=== PATIENT | female | born 1985 | race Caucasian/White ===

== ENCOUNTER 2021-08-24 00:56 | Day surgery (SDC) | payer BC, SELFPAY ==
[2021-08-13 13:52] VITALS: BMI 23.0
[2021-08-24 12:32] VITALS: BP 151/76; PULSE 99; RESP 16; TEMP 36.6; O2SAT 100; BMI 23.1
[2021-08-24] MEDS: LACTATED RINGERS 1,000 ML 150 ML IV CONT (12:54)
--- NOTE | 2021-08-24 12:59 | WPDHPUPDATE1 ---
History and Physical Update Update Date/Time: 08/24/21 12:59 History and Physical has been reviewed, including an updated exam of the patient. There are NO changes in the patient's condition. Risks, benefits, and alternatives have been discussed and questions answered. Patient agrees to proceed with procedure.
--- NOTE | 2021-08-24 13:02 | P.PNAN_ITS ---
Anes - Initial Pre Proc Eval Procedure: Operation Date: 08/24/21 13:30 Proposed Procedures p Esophagogastroduodenoscopy - Fercho Oscar MD Date/Time: 08/24/21 13:02 Surgeon: Fercho Oscar MD Pre Op Diagnosis: dysphagia Patient Data Age: 35 Gender: F Height: 1.6 m Weight: 59.1 kg Last Vital Signs Temp 97.8 F 08/24/21 12:32 Pulse 99 08/24/21 12:32 Resp 16 08/24/21 12:32 BP 151/76 H 08/24/21 12:32 Pulse Ox 100 08/24/21 12:32 O2 Del Method Room Air 08/24/21 12:32 Allergies Allergy/AdvReac Type Severity Reaction Status Date / Time minocycline Allergy Unknown Dizziness, Verified 08/24/21 12:40 KRUEGER, nausea Home Medications Medication Instructions Recorded Confirmed Type fexofenadine 180 mg tablet 180 mg PO DAILY 11/15/19 08/24/21 History (Gianna Allergy) fluticasone propionate 50 2 spray intranasal DAILY 11/15/19 08/24/21 History mcg/actuation nasal spray,suspension docosahexaenoic acid 200 mg 200 mg PO DAILY 12/05/20 08/24/21 History capsule ( DHA) Patient hx anesthesia problems: none Family hx anesthesia problems: none Results Review: All pre-operative results and documents have been reviewed as part of the pre- operative evaluation. COUNT INCLUDES THE [facility] Past Medical History Medical History (Updated 07/26/21 @ 11:23 by Fercho Oscar MD) Bloating Dysphagia Epigastric pain Family history of Crohn's disease Family history of Sjogren's disease IBS (irritable bowel syndrome) Family History Family History Mother Family history of cardiovascular disease Family history of gastrointestinal disorder Family history of elevated blood lipids Father Patient's father is in good health Social History Social History (Updated 07/26/21 @ 10:56 by Cherelle Hilliard CMA) Smoking status: Never smoker Alcohol intake: current Alcohol use details: social Substance use: current Substance use type: does not use Living arrangements: other Additional living arrangements comments: With sp Spiritual care concerns: No Anes - Eval Final PreProcedure Day of Procedure 08/24/21 13:02 Patient weight: normal Heart: regular rate and rhythm Lungs: clear to auscultation Airway: Mallampati scale class II Neurological: alert and oriented Last oral intake: >/= 8 hours ASA classification: II Emergent: no Anesthetic plan: proceed Anesthesia type and monitoring: general GIVS and standard monitoring Results Review: All pre-operative results and documents have been reviewed as part of the pre- operative evaluation. Informed Consent: The patient's anesthetic plan and its attendant risks and benefits were discussed with the patient/family/POA. Questions were solicited and answers provided to the satisfaction of the patient/family/POA.
[2021-08-24 13:21] VITALS: BP 100/58; PULSE 78; RESP 19; O2SAT 100
[2021-08-24 13:31] VITALS: BP 104/67; PULSE 70; RESP 18; O2SAT 100
[2021-08-24 13:41] VITALS: BP 124/79; PULSE 66; RESP 15; O2SAT 100
== END 2021-08-24 13:49 | disposition home or self-care (01) ==
PROVIDERS: PCP Internal Medicine; Visit Provider Internal Medicine Gastroenterology
PROC: 0DJ08ZZ Inspection of Upper Intestinal Tract, Via Natural or Artificial Opening Endoscopic (ICD-10-PCS; CPT 43235; principal; 2021-08-24 13:30)
DX: R13.10 Dysphagia, unspecified (principal); K22.2 Esophageal obstruction; K21.00 Gastro-esophageal reflux disease with esophagitis, without bleeding; K58.9 Irritable bowel syndrome, unspecified; Z83.79 Family history of other diseases of the digestive system
CPT/HCPCS: 43249; 43239; 88305; C1726; J2704; J7120

== ENCOUNTER 2023-02-18 12:29 | Outpatient (RCR) | payer BC, SELFPAY ==
[2022-12-19 09:52] VITALS: BP 114/71; PULSE 86
[2022-12-25 14:40] VITALS: BP 109/78; PULSE 85
[2023-01-02 10:11] VITALS: BP 124/75; PULSE 92
[2023-01-09 09:59] VITALS: BP 108/68; PULSE 81
[2023-01-16 14:41] VITALS: BP 116/70; PULSE 80
[2023-01-22 09:50] VITALS: BP 110/69; PULSE 81
[2023-01-29 10:02] VITALS: BP 113/71; PULSE 81
[2023-02-05 09:32] VITALS: BP 115/73; PULSE 87
[2023-02-11 09:38] VITALS: BP 102/68; PULSE 73
[2023-02-17 11:10] VITALS: BP 109/73; PULSE 81
--- NOTE | ~2023-02-18 | US_ITS ---
EXAMINATION: US OB limited w BPP DATE: 02/18/2023 15:11 WRITING TUTOR INDICATION: Post due dates TECHNIQUE: Real-time transabdominal obstetric ultrasound. FINDINGS: No prior studies for comparison. There is a single living fetus in vertex presentation. The placenta is posterior without placenta pr evia. cardiac activity and movement is noted with a heart rate of 134 beats per minute. Biophysical profile: breathin of 2 movement: 2 of 2 tone: 2 of 2 Amniotic flud pocket: 2 of 2 Total score: 8 of 8 IMPRESSION: 1. Single living intrauterine in vertex presentation. 2: Total biophysical profile score of 8/8. Reviewed, dictated and finalized at location L. ING TUTOR
[2023-02-18 14:45] VITALS: BP 108/72; PULSE 74
== END 2023-03-19 23:59 | disposition home or self-care (01) ==
LOC: ANHOBOP 12:29
PROVIDERS: PCP Internal Medicine; Visit Provider Obstetrics & Gynecology
DX: O35.8XX0 Maternal care for other (suspected) fetal abnormality and damage, not applicable or unspecified (principal); O99.891 Other specified diseases and conditions complicating pregnancy; Q62.0 Congenital hydronephrosis; Z3A.32 32 weeks gestation of pregnancy; O36.8130 Decreased fetal movements, third trimester, not applicable or unspecified; Z3A.33 33 weeks gestation of pregnancy; Z3A.34 34 weeks gestation of pregnancy; Z3A.35 35 weeks gestation of pregnancy; Z3A.36 36 weeks gestation of pregnancy; Z3A.37 37 weeks gestation of pregnancy; Z3A.38 38 weeks gestation of pregnancy; Z3A.39 39 weeks gestation of pregnancy; Z3A.40 40 weeks gestation of pregnancy
CPT/HCPCS: 59025; 76815; 76819

== ENCOUNTER 2023-02-19 05:11 | Inpatient (IN) | payer BC, SELFPAY ==
[2023-02-19] VITALS (232 sets, daily range): BP systolic 70–131; BP diastolic 34–106; PULSE 60–149; RESP 16; TEMP 36.3–37.2; O2SAT 92–100; BMI 28.8
[2023-02-19 05:53] LABS: Basophils Percent Auto 0.3 % (0.2-1.2); Eosinophils Absolute Auto 0.2 K/mm3 (0-0.3); Eosinophils Percent Auto 2.1 % (0-4.4); Hemoglobin 10.9 g/dL (12.0-15.0); Immature Granulocyte Absolute 0.02 K/mm3 (0.00-0.031); Immature Granulocyte Percent A 0.3 % (0-0.5); Lymphocytes Absolute Auto 1.33 K/mm3 (0.9-3.2); Lymphocytes Percent Auto 18.3 % (18.3-44.2); Mean Corpuscular Hemoglobin 31.9 pg (26-34); Mean Corpuscular Volume 96.5 fl (80-100); Mean Platelet Volume 10.8 fl (7.4-10.4); Monocytes Absolute Auto 0.3 K/mm3 (0.1-0.6); Neutrophils Absolute Auto 5.4 K/mm3 (1.3-6.7); Platelet Count Result 172 k/mm3 (150-375); Red Blood Count 3.42 M/mm3 (4.2-5.4); Red Cell Distribution Width 14.4 % (11.5-14.5); White Blood Count 7.3 K/mm3 (4.5-10.0)
--- NOTE | 2023-02-19 05:53 | LDADM ---
This patient, Franchesca Arrington, was admitted to Labor/Delivery/Recovery 104 on 02/19/23 at 05:11. Plans for labor, pain management and were discussed with patient. Patient/family oriented to hospital policies and general routines including ID bracelet, bed and alarms, visiting hours, pain management, procedures, bathroom and other care routines, personal items, smoking policy, room service/diet and guest tray routines, infant security routines, and visiting hours. Patient/Family are encouraged to report perceived risks to care and to ask questions if they do not understand what they are told or what they should do. See OBIX for further documentation.
--- NOTE | 2023-02-19 06:34 | PM.IMHP ---
H&P: HPI History of Present Illness Date/Time: 02/19/23 06:34 Chief Complaint: Postdate Narrative: this is a 37-year-old 4 para 2 at 41 weeks gestation for induction of labor she has early ultrasound confirming dates. Risks and benefits were reviewed of induction [facility] Past Medical History Medical History Bloating Dysphagia Epigastric pain Family history of Crohn's disease Family history of Sjogren's disease IBS (irritable bowel syndrome) Non-cardiac chest pain Family History Family History Mother Family history of cardiovascular disease Family history of gastrointestinal disorder Family history of elevated blood lipids Father Patient's father is in good health Social History Social History Smoking status: Never smoker Second hand tobacco smoke exposure: No Alcohol intake: current Alcohol use details: social Substance use: never Substance use type: does not use Lack of Transportation: No Lack of Food: Never True Current Housing: I Have Housing Concerned About Future Housing: No Difficulty Paying Gas/Electric Bills: No Difficulty Paying for Meds: No Currently Unemployed: No Education: Master's Degree or Higher Difficulty w/ Childcare or Family Care: No Living arrangements: other Additional living arrangements comments: With sp Spiritual care concerns: No Meds Home Medications and Allergies Home Medications Medication Instructions Recorded Confirmed Type docosahexaenoic acid 200 mg 200 mg PO DAILY 12/05/20 01/22/23 History capsule ( DHA) cetirizine 10 mg tablet (Zyrtec) 10 mg PO DAILY 12/19/22 01/22/23 History Allergies Allergy/AdvReac Type Severity Reaction Status Date / Time minocycline Allergy Unknown Dizziness, Verified 12/12/21 09:53 KRUEGER, nausea Vital Signs Vital Signs - 24 hr 02/19/23 05:51 02/19/23 06:00 02/19/23 06:15 Pulse Rate 97 116 H 101 H Blood Pressure 123/78 107/72 113/75 Oxygen Delivery 02/19/23 06:31 02/19/23 05:52 Pulse Rate 86 Blood Pressure 123/93 H Oxygen Delivery Room Air Exam Const: General: cooperative, healthy appearing and comfortable Nutritional Appearance: average body habitus Orientation/consciousness: oriented to person, oriented to place and oriented to time HENMT: Head: normal to inspection Resp: Effort & Inspection: normal respiratory effort Cardio: Rate: regular rate Rhythm: regular rhythm Heart sounds: S1 normal heart sound present and S2 normal heart sound present GI: Inspection: normal to inspection ( gravid soft uterus) : External Female Exam: normal external appearance Speculum Exam - Vagina: normal appearance of the vagina Speculum Exam - Cervix: normal appearance of the cervix ( cervix 2.5/60/2. Attempted a ROM. FHTs reassuring) H&P: Results Labs Labs: Short CBC 02/19/23 Range/Units 05:26 WBC 7.3 (4.5-10.0) K/mm3 Hgb 10.9 L (12.0-15.0) g/dL Hct 33.0 L (37.0-47.0) % Plt Count 172 (150-375) k/mm3 Assessment and Plan Assessment and plan (1) Post-dates : Code(s): O48.0 - Post-term Status: Acute Plan medical induction of labor. Spontaneous vaginal delivery expected. She is an epidural candidate
[2023-02-19] MEDS: LACTATED RINGERS 1,000 ML 125 ML IV CONT ×4 (07:58→19:35)
[2023-02-19] MEDS: OXYTOCIN 30 UNITS/NS 500 ML 30 UNITS/500 ML BAG IV CONT (07:59)
[2023-02-19 13:17] LABS: Rapid Plasma Reagin Non-Reactive (NonReactive)
--- NOTE | 2023-02-19 14:12 | PM.OBPNLAB ---
Pain Control Date/time seen: 02/19/23 14:12 Pain control: tolerating well and epidural Pelvic Exam Dilation (cm): 5 Effacement (%): 100 station: -1
--- NOTE | 2023-02-19 14:32 | WPDANESEPPF ---
Anes - Initial Pre Proc Eval Procedure: labor epidural Date/Time: 02/19/23 14:32 Surgeon: Gregory Viveros MD Pre Op Diagnosis: labor pain Pre Op Diagnosis: Induction of Labor Patient Data Age: 37 Gender: F Height: 1.6 m Weight: 73.936 kg Last Vital Signs Temp 36.3 C L 02/19/23 14:25 Pulse 71 02/19/23 14:31 BP 112/54 L 02/19/23 14:31 Pulse Ox 100 02/19/23 14:29 O2 Del Method Room Air 02/19/23 05:52 Allergies Allergy/AdvReac Type Severity Reaction Status Date / Time minocycline Allergy Unknown Dizziness, Verified 12/12/21 09:53 KRUEGER, nausea Home Medications Medication Instructions Recorded Confirmed Type docosahexaenoic acid 200 mg 200 mg PO DAILY 12/05/20 01/22/23 History capsule ( DHA) cetirizine 10 mg tablet (Zyrtec) 10 mg PO DAILY 12/19/22 01/22/23 History Laboratory Tests 02/19/23 05:26 WBC 7.3 K/mm3 (4.5-10.0) RBC 3.42 L M/mm3 (4.2-5.4) Hgb 10.9 L g/dL (12.0-15.0) Hct 33.0 L % (37.0-47.0) MCV 96.5 fl (80-100) MCH 31.9 pg (26-34) MCHC 33.0 g/dl (32-36) RDW 14.4 % (11.5-14.5) Plt Count 172 k/mm3 (150-375) MPV 10.8 H fl (7.4-10.4) Immature Gran % (Auto) 0.3 % (0-0.5) Neut % (Auto) 75.0 H % (45.5-73.1) Lymph % (Auto) 18.3 % (18.3-44.2) [place] % (Auto) 4.0 % (2.6-8.5) Eos % (Auto) 2.1 % (0-4.4) Baso % (Auto) 0.3 % (0.2-1.2) Lymph # (Auto) 1.33 K/mm3 (0.9-3.2) [place] # (Auto) 0.3 K/mm3 (0.1-0.6) Eos # (Auto) 0.2 K/mm3 (0-0.3) Baso # (Auto) 0.0 K/mm3 (0.0-0.1) Abs Immat Gran (auto) 0.02 K/mm3 (0.00-0.031) Absolute Neuts (auto) 5.4 K/mm3 (1.3-6.7) Absolute Nucleated RBC 0.0 K/mm3 (0.0-0.012) Nucleated RBC % 0.0 % (0.0-0.2) RPR Non-reactive (NonReactive) Blood Type A Negative Antibody Screen Negative Patient hx anesthesia problems: none Family hx anesthesia problems: none Results Review: All pre-operative results and documents have been reviewed as part of the pre-operative evaluation. [facility] Past Medical History Medical History Bloating Dysphagia Epigastric pain Family history of Crohn's disease Family history of Sjogren's disease IBS (irritable bowel syndrome) Non-cardiac chest pain Family History Family History Mother Family history of cardiovascular disease Family history of gastrointestinal disorder Family history of elevated blood lipids Father Patient's father is in good health Social History Social History Smoking status: Never smoker Second hand tobacco smoke exposure: No Alcohol intake: current Alcohol use details: social Substance use: never Substance use type: does not use Lack of Transportation: No Lack of Food: Never True Current Housing: I Have Housing Concerned About Future Housing: No Difficulty Paying Gas/Electric Bills: No Difficulty Paying for Meds: No Currently Unemployed: No Education: Master's Degree or Higher Difficulty w/ Childcare or Family Care: No Living arrangements: other Additional living arrangements comments: With sp Spiritual care concerns: No Anes - Eval Final PreProcedure Day of Procedure 02/19/23 14:32 Patient weight: overweight ASA classification: II Anesthetic plan: proceed Anesthesia type and monitoring: regional epidural and standard monitoring Results Review: All pre-operative results and documents have been reviewed as part of the pre-operative evaluation. Informed Consent: The patient's anesthetic plan and its attendant risks and benefits were discussed with the patient/family/POA. Questions were solicited and answers provided to the satisfaction of the patient/family/POA.
--- NOTE | 2023-02-19 15:54 | PM.OBPNLAB ---
Pain Control Date/time seen: 02/19/23 15:54 Pain control: tolerating well and epidural Pelvic Exam Dilation (cm): 7 Effacement (%): 80 Amniotic membrane status: Leaking Contractions Monitor mode: Internal
[2023-02-19] MEDS: OXYTOCIN 30 UNITS/NS 500 ML 30 UNITS/500 ML BAG 999 UNITS IV CONT (20:03)
--- NOTE | 2023-02-19 20:27 | PM.OBPRVD ---
OB - Vaginal Delivery Note Procedure Delivery date: 02/19/23 Events: Elective Induction of Labor Induction method: AROM Delivery augmentation: Pitocin Delivery monitor: External Uterine and Internal Uterine Route of delivery: Episiotomy description: None Laceration Description: Perineal - 2nd Degree Delivery repair: vicryl Specimen: No Quantitative Blood Loss (ml): 60 Anesthesia type: Epidural Disposition: Floor Complications: No immediate complications Baby Date of : 02/19/23 Time of : 20:00 Weeks of gestation at delivery: 41 gender: Male Weight (pounds): 8 Weight (ounces): 4 presentation: vertex position: Right Occiput Anterior Placenta delivery description: Spontaneous Cord Vessel Description: 3 Vessels score one minute: 9 score five minutes: 9
[2023-02-19] MEDS: OXYTOCIN 30 UNITS/NS 500 ML 30 UNITS/500 ML BAG 125 UNITS IV CONT (20:29)
--- NOTE | 2023-02-19 20:30 | PM.DS ---
DS: Admitting Diagnosis Discharge Date 02/21/2023 Admitting Diagnosis Postdates DS: Discharge Diagnosis Discharge Diagnosis (1) Post-dates : Code(s): O48.0 - Post-term Status: Acute DS: Summary Hospital Course Reason for hospitalization: admitted for induction labor secondary to postdates Hospital Course: she underwent spontaneous delivery epidural anesthesia course. She remained afebrile. She was up, voiding without difficulty eating regular diet, ambulating, generally without complaints. Time Spent with Patient Time attestation: Total time spent providing and/or coordinating discharge services: Exam Const: General: cooperative, healthy appearing and comfortable Nutritional Appearance: average body habitus Orientation/consciousness: oriented to person, oriented to place and oriented to time HENMT: Head: normal to inspection Resp: Effort & Inspection: normal respiratory effort Cardio: Rate: regular rate Rhythm: regular rhythm Heart sounds: S1 normal heart sound present and S2 normal heart sound present GI: Inspection: normal to inspection ( Fundus firm below the umbilicus) DS: Data Data Completed and Pending Labs on day of discharge: Labs from last 24 hours 02/19/23 05:26 WBC 7.3 RBC 3.42 L Hgb 10.9 L Hct 33.0 L MCV 96.5 MCH 31.9 MCHC 33.0 RDW 14.4 Plt Count 172 MPV 10.8 H Immature Gran % (Auto) 0.3 Neut % (Auto) 75.0 H Lymph % (Auto) 18.3 [place] % (Auto) 4.0 Eos % (Auto) 2.1 Baso % (Auto) 0.3 Lymph # (Auto) 1.33 [place] # (Auto) 0.3 Eos # (Auto) 0.2 Baso # (Auto) 0.0 Abs Immat Gran (auto) 0.02 Absolute Neuts (auto) 5.4 Absolute Nucleated RBC 0.0 Nucleated RBC % 0.0 RPR Non-reactive Blood Type A Negative Antibody Screen Negative Discharge Plan Discharge Attending physician on discharge: Gregory Jacobson Discharging Clinician: Gregory Jacobson Patient Disposition: Home, Self-Care Activity: may shower and pelvic rest Diet: regular Wound Care Instructions: follow printed instructions Discharge Instructions: Call or return if temperature above 100.4? F, increased abdominal pain, increased vaginal bleeding or any new problems. Education: Mom and Baby Guide Given to: Mother Follow-Up: Call your delivering provider's office for an appointment to be seen in: 6 Weeks Mom and baby should come to the [facility] for the follow-up appointment. Appointment Date/Time: February 24, 2023 at 10:00 am What to expect at your follow-up visit: Blood Pressure Check Physical Assessment Call [phone] if you are unable to keep your appointment time. BREAST CARE: * Wear a snug supportive bra. * For engorgement discomfort: Breast Feeding: * Apply warm moist washcloths * Express milk as needed to relieve engorgement * Wear loose clothing Bottle Feeding: * May apply ice packs * For sore nipples: * Identify correct latch-on * Apply warm moist washcloths before and after nursing * Air dry nipples after nursing * May apply Lansinoh cream to nipples EPISIOTOMY/PERINEAL CARE: * Until bleeding stops, use your rangel bottle after urinating * Change your pad frequently throughout the day * You may take sitz baths several times a day (fill your bathtub with warm water and soak for 20 minutes.) Do NOT bathe in the water * No tub baths until seen by your physician - You may shower ACTIVITY: * Rest as much as possible. * Do not exercise or lift anything heavier than your baby (such as laundry or other children.) * Avoid stairs or driving as much as possible. * Do not put anything into the vagina. No douching, tampons, or sexual activity until seen by physician. NOTIFY PHYSICIAN IF YOU HAVE ANY QUESTIONS OR IF ANY OF THE FOLLOWING SYMPTOMS OCCUR: * If your episiotomy or incision becomes red,
[2023-02-19] MEDS: ACETAMINOPHEN 325 MG TABLET 650 MG PO (23:56)
[2023-02-19] MEDS: IBUPROFEN 600 MG TABLET PO (23:56)
[2023-02-20] VITALS (10 sets, daily range): BP systolic 79–125; BP diastolic 59–68; PULSE 75–108; RESP 16–18; TEMP 36.3–36.8; O2SAT 80–100
[2023-02-20 04:17] LABS: Hematocrit 26.9 % (37.0-47.0); Hemoglobin 8.8 g/dL (12.0-15.0)
[2023-02-20] MEDS: DOCUSATE SODIUM 100 MG CAPSULE PO ×2 (08:33→17:30)
[2023-02-20] MEDS: POLYSACCHARIDE IRON COMPLEX 150 MG CAPSULE PO ×2 (08:33→17:31)
[2023-02-20] MEDS: MULTIVIT/MIN/PREN/FOL AC/IRON TABLET 1 TAB PO (08:33)
[2023-02-20] MEDS: ACETAMINOPHEN 325 MG TABLET 650 MG PO ×2 (08:45→17:31)
--- NOTE | 2023-02-20 11:35 | PM.OBPNVD ---
OB - PN: Subj Subjective Date/time seen: 02/20/23 11:35 Narrative: Pain OK. Desires circumcision for son. OB - PN: Obj Data Labs 02/20/23 04:01 Labs: Laboratory Results - last 24 hr 02/19/23 02/20/23 05:26 04:01 Hgb 8.8 L Hct 26.9 L RPR Non-reactive OB - PN A/P Plan Comments: A: PPD#1, doing well. P: Reviewed circ. Routine care. Exam Psych: Other: AVSS ABD soft, nontender, fundus firm EXT nontender
[2023-02-20] MEDS: IBUPROFEN 600 MG TABLET PO ×2 (11:57→22:29)
--- NOTE | 2023-02-20 15:34 | PC.NURSE ---
Report given to Carla Caballero RN.
[2023-02-20] MEDS: WITCH HAZEL 40 PADS 1 PAD TOPICAL (17:30)
[2023-02-21 08:30] VITALS: BP 103/72; PULSE 70; RESP 18; TEMP 36.8; O2SAT 100
[2023-02-21] MEDS: MULTIVIT/MIN/PREN/FOL AC/IRON TABLET 1 TAB PO (08:44)
[2023-02-21] MEDS: DOCUSATE SODIUM 100 MG CAPSULE PO (08:44)
[2023-02-21] MEDS: POLYSACCHARIDE IRON COMPLEX 150 MG CAPSULE PO (08:44)
[2023-02-21] MEDS: IBUPROFEN 600 MG TABLET PO (08:44)
--- NOTE | 2023-02-21 12:05 | PM.OBPNVD ---
OB - PN: Subj Subjective Date/time seen: 02/21/23 12:05 Narrative: Pain OK. Would like to go home. OB - PN: Obj Data Labs 02/20/23 04:01 OB - PN A/P Plan Comments: A: PPD#2, doing well. P: Home to f/u 6 weeks. Exam Psych: Other: AVSS ABD soft, nontender, fundus firm EXT nontender
[2023-02-24 10:23] VITALS: BP 119/78; PULSE 68; RESP 18; TEMP 37.1; O2SAT 100
== END 2023-02-21 15:00 | disposition home or self-care (01) | DRG 807 ==
LOC: ANHLDR 20:34 → ANHOB2 02-21 12:18 → ANHLDR 02-24 08:36 → ANHOB2 02-24 08:36 → ANHOBPP 02-24 08:36
PROVIDERS: Admitting Provider Obstetrics & Gynecology; PCP Internal Medicine; Visit Provider Obstetrics & Gynecology
DX: O70.1 Second degree perineal laceration during delivery (principal); Z37.0 Single live birth; Z3A.41 41 weeks gestation of pregnancy
CPT/HCPCS: 36415; 85014; 85018; 85025; 86592; 86850; 86900; 86901; A9270; J2590; J2795; J7120